=== PATIENT | female | born 1940 | race Caucasian/White ===

== ENCOUNTER → 2016-10-20 | Outpatient (CLI) | payer MEDICARE, BC ==
[~2016-10-20] MED LIST: ACETAMINOPHEN PO; ACYCLOVIR400 MG PO; ADVAIR 2501 DISK W/D PO; ADVAIR 500-501 EACH IH; ADVAIR 5001 DISK W/2 IH; ALBUTEROL MININEB NEB; ALBUTEROL0.63 MG/3 IH; ALBUTEROL17 GM INH; ALLEGRA-D 12 H1 EACH; ALLEGRA-D1 TAB.SR1 PO; ALPRAZOLAM PO; ALPRAZOLAM0.25 MG PO; AMBIEN PO; AMIODARONE HCL100 MG PO; APAP325 M1 PO; ARTHROTEC 501 TAB.EC PO; ASPIRIN PO; ASPIRIN81 M2 PO; ASPIRIN81 MG PO; ATORVASTATIN CA40 MG PO; BENTYL10 M1 PO; CALCIUM 500 +1 EAC2 PO; CLINDAMYCIN HC300 MG PO; COLACE PO; COLCRYS0.6 M2 PO; COMBIVENT U/D3 M1 INH; CORDARONE200 M1 PO; COUMADIN1 MG; COUMADIN1 MG PO; COUMADIN2.5 MG PO; DARVOCET-N 1001 TAB PO; DUONEB 2.5-0.5 M3 ML NEB; DURAGESIC TOP; DURAGESIC25 MCG EXT; ERYTHROMYCIN E400 M1 PO; EVISTA60 MG PO; FLAGYL PO; FLONASE 0.05% N16 G1; FLONASE16 GM; FLUOXETINE HCL20 M1 PO; HCTZ PO; HYDROCHLOROTHIA25 MG PO; HYDROCODON-ACE1 EAC4 PO; HYDROCODON-ACE1 EAC5 PO; INVANZ1 G/VIA1 IV; IPRAT-ALBUT 0.5-3 ML NEB; IPRATROPIUM0.2 MG/ML NEB; LANSOPRAZOLE30 M2 PO; LEVAQUIN PO; LIPITOR PO; LIPITOR40 MG PO; LISINOPRIL5 MG PO; LOPRESSOR PO; LORTAB 10-3251 EACH PO; LORTAB 7.5-3251 EACH PO; METOPROLOL PO; METOPROLOL SUCC25 MG PO; MINI NEBS; MIRALAX255 GM PO; MOBIC PO; MONTELUKAST SOD10 MG PO; NASONEX17 GM; NEXIUM PO; NORCO 7.5/325 T1 TAB PO; NORVASC PO; OXYCODONE-ACET1 EACH PO; OXYGEN; PANTOPRAZOLE SO40 MG PO; PHENERGAN25 MG PO; PHENOLATE PO; POTASSIUM CHLO10 ME1 PO; PREDNISONE PO; PREDNISONE10 MG PO; PREVACID PO; PRINIVIL10 MG PO; PROTONIX PO; RESTORIL15 MG PO; SARAFEM PO; SERTRALINE HCL25 M2 PO; SINGULAIR PO; SYNTHROID PO; TEMAZEPAM PO; TOPROL XL PO; TUSSIN MAX15 MG/5 M1 PO; TUSSIONEX PENN473 ML PO; TYLENOL325 M1 PO; VIBRAMYCIN100 M1 PO; WARFARIN SODIUM2 MG PO; XARELTO20 MG PO; ZITHROMAX PO; ZOLOFT PO
--- NOTE | ~2016-10-20 | CR282 ---
[facility] A Service of [facility] & [facility] RADIOLOGY TEXT RESULTS PATIENT: LUCIO DOLAN LOCATION: [facility] : 41 UNIT #: [id number] AGE: [address]: ZEINA PASCAL SEX: F ORDER DR: [id number] [facility] [address] [facility]. [place], [place] [address] [id number] O MR#: [id number] Acc #: [id number] NAME: LUCIO DOLAN. : 1940 SEX: F STUDY DATE/TIME: 10/20/2016 15:41 UNIT: [facility] ROOM: STUDY DESCRIPTION: CR Wrist Min 3 View Rt Attending Physician: Kathy Mcclendon Referring Physician: Kathy Mcclendon Primary Care Physician: Isabella Jose M.D. MEDICAL IMAGING REPORT This report is preliminary unless electronic signature is present EXAM Right wrist, 3 views. HISTORY Wrist pain and swelling after a fall 4 days ago. FINDINGS 3 views of the right wrist demonstrate advanced chronic degenerative changes, stable compared to 09/23/2015, with chronic deformity of the articular surface of the radius at its junction with the scaphoid, and chronic remodelling and sclerosis of the proximal pole of the scaphoid. Widened scapholunate interspace, indicating prior scapholunate ligament injury is also stable. Probable ossified loose body along the lateral margin of the wrist at the radiocarpal junction. Generalized demineralization. Degenerative cysts in the distal radius. Minimal chondrocalcinosis in the triangular fibrocartilage. No acute fracture. IMPRESSION 1. Degenerative changes in the wrist, most severe in the radiocarpal junction with chronic remodelling and deformity of the proximal scaphoid and the adjacent articular surface of the radius. 2. No acute finding. No fracture. No change compared to 09/23/2015. Dictated by... Alek Johnson M.D. THIS IS AN ELECTRONICALLY VERIFIED REPORT Alek Johnson M.D. at 10/21/2016 3:57 PM DFL/yosvany TD: 10/21/2016 09:39 [facility] A Service of [facility] & [facility] RADIOLOGY TEXT RESULTS PATIENT: LUCIO DOLAN LOCATION: [facility] #: [id number] : 41 UNIT #: [id number] AGE: [address]: ZEINA PASCAL SEX: F ORDER DR: JEOVANNY #: [id number] MEDICAL IMAGING REPORT COPY
== END | disposition home or self-care (01) ==
LOC: CRAD 15:26
DX: M25.431 Effusion, right wrist (principal); S63.501A Unspecified sprain of right wrist, initial encounter; M21.931 Unspecified acquired deformity of right forearm
CPT/HCPCS: 73110

== ENCOUNTER → 2016-12-03 | Day surgery (SDC) | payer MEDICARE, BC ==
--- NOTE | ~2016-12-03 | OR ---
Unit #: [id number] #: [id number] Patient: LUCIO DOLAN [id number] [address] [address] [id number] O MR#: [id number] NAME: LUCIO DOLAN ROOM: Date of Procedure: 12/03/2016 Admission Date: 12/03/2016 Surgeon: Rajan Torres M.D. : 1940 Attending Physician: Rajan Torres M.D. Primary Care Physician: Isabella Jose M.D. OPERATIVE REPORT PREOPERATIVE DIAGNOSES Back pain, radiculopathy and degenerative disk disease with myelopathy. POSTOPERATIVE DIAGNOSES Back pain, radiculopathy and degenerative disk disease with myelopathy. PROCEDURE PERFORMED Lumbar epidural steroid injection with intravenous sedation under fluoroscopic guidance for needle localization. INDICATIONS FOR PROCEDURE The patient is a 76-year-old female with return of back and right greater than left lower extremity pain due to multilevel nonsurgical degenerative disk disease, most significant at L4-5 and present from L2 through S1. Epidural steroids have generally given her anywhere from 2 to 6 months of improvement. Last injection did not work quite as well. Plan is to repeat injection at the mid level practitioner based on history, pathology, symptomatology and response to treatment. DESCRIPTION OF PROCEDURE The patient was placed in a seated position. Standard monitors were applied. Then, 2 mg of Versed were given for sedation and anxiolysis, which were adequate. Vital signs remained stable. Sterile prep and drape then of the lumbar area was performed. The skin then at the L4-L5 level was localized with 1% lidocaine. An 18-gauge UCANtead needle was then advanced via loss of resistance technique and fluoroscopic guidance in toward the epidural space. After confirming proper positioning with fluoroscopy and radiographic contrast, 80 mg of Depo-Medrol and 6 mL of 0.5% lidocaine were deposited. The patient tolerated the procedure otherwise well and was discharged to the recovery room in stable condition. Dictated by... Rajan Torres M.D. LHP/modl TD: 12/03/2016 09:57 JOB #: [id number] CC: Pain Center Unit #: [id number] #: [id number] Patient: LUCIO DOLAN OPERATIVE REPORT Page 1 of 1 X Rajan Torres MD X PROCEDURE OPERATIVE NOTE
== END | disposition home or self-care (01) ==
LOC: CCSC 07:53
DX: M51.06 Intervertebral disc disorders with myelopathy, lumbar region (principal); M54.16 Radiculopathy, lumbar region; I10 Essential (primary) hypertension; K21.9 Gastro-esophageal reflux disease without esophagitis; J44.9 Chronic obstructive pulmonary disease, unspecified
CPT/HCPCS: J1040; J2250

== ENCOUNTER → 2016-12-24 | Outpatient (CLI) | payer MEDICARE, BC ==
--- NOTE | ~2016-12-24 | CT57 ---
[facility] A Service of [facility] & [facility] RADIOLOGY TEXT RESULTS PATIENT: LUCIO DOLAN LOCATION: [facility] : 41 UNIT #: [id number] AGE: [address]: Frank Fay MD SEX: F ORDER DR: [id number] [facility] [address] [facility]. [place], [place] [address] [id number] O MR#: [id number] Acc #: [id number] NAME: LUCIO DOLAN : 1940 SEX: F STUDY DATE/TIME: 12/24/2016 13:59 UNIT: [facility] ROOM: STUDY DESCRIPTION: CT Chest Wo Cont Attending Physician: Frank Fay M.D. Referring Physician: Frank Fay M.D. Ordering Physician: Frank Fay M.D. Primary Care Physician: Isabella Jose M.D. MEDICAL IMAGING REPORT This report is preliminary unless electronic signature is present EXAM High resolution chest CT without contrast INDICATIONS Pulmonary fibrosis, abnormal PFTs. Wheezing for [address] exam was performed with one or more of the following radiation dose reduction techniques: automatic exposure control, adjustment of mA and/or kV according to patient size, and iterative reconstruction. CT of the chest was performed without contrast. Selected HRCT imaging was obtained in the supine and prone positioning. Comparison is made with 02/06/2015. FINDINGS There is new small amount of ground-glass opacity in the anterior right upper lobe on image 15 through 17. There is curvilinear scarring or atelectasis in the region of my right middle lobe. There is a tiny micronodule in the inferior right lower lobe on image 23. There is some minimal curvilinear fibrotic change in the posterior aspect of the right lower lobe. There is also some mild cylindrical bronchiectasis medially in the right lower lobe best seen on high-resolution axial image 15. There is no evidence of diffuse infiltrative lung disease or honeycombing. Calcified mediastinal lymph nodes. Coronary artery calcification. Minimal amount of pericardial fluid or thickening. Limited imaging of the upper abdomen demonstrates multiple cysts in the liver. Degenerative changes thoracic spine. IMPRESSION 1. There is some minimal ground-glass opacity in the right upper lobe as described. Appearance is nonspecific and may be infectious STS. [facility] A Service of [facility] RADIOLOGY TEXT RESULTS PATIENT: LUCIO DOLAN LOCATION: [facility] : 41 UNIT #: [id number] AGE: [address]: Frank Fay MD SEX: F ORDER DR: or inflammatory or possibly some minimal fibrosis. 2. There is minimal curvilinear fibrosis in the medial posterior aspect of the right lower lobe, and there is some mild bronchiectasis also in this region. 3. Tiny micronodule in the base of the right upper lobe. 4. No evidence for diffuse infiltrative lung disease or honeycombing Dictated by... Stone Gordon M.D. THIS IS AN ELECTRONICALLY VERIFIED REPORT Stone Gordon M.D. at 12/25/2016 10:08 AM SANTHOSH/leonardo TD: 12/24/2016 21:18 JOB #: [id number] MEDICAL IMAGING REPORT Page 1 of 1 COPY
== END | disposition home or self-care (01) ==
LOC: CCAT 13:25
DX: J84.10 Pulmonary fibrosis, unspecified (principal); R06.00 Dyspnea, unspecified; J47.9 Bronchiectasis, uncomplicated
CPT/HCPCS: 71250

== ENCOUNTER → 2017-01-28 | Day surgery (SDC) | payer MEDICARE, BC ==
--- NOTE | ~2017-01-28 | OR ---
Unit #: [id number] #: [id number] Patient: LUCIO DOLAN [id number] [address] [address] [id number] O MR#: [id number] NAME: LUCIO DOLAN ROOM: Date of Procedure: 01/28/2017 Admission Date: 01/28/2017 Surgeon: Rajan Torres M.D. : 1940 Attending Physician: Rajan Torres M.D. Primary Care Physician: Isabella Jose M.D. OPERATIVE REPORT JOB NOTE: CC: [facility] PREOPERATIVE DIAGNOSES Back pain, radiculopathy, degenerative lumbar disk disease, lumbar disk herniation. POSTOPERATIVE DIAGNOSES Back pain, radiculopathy, degenerative lumbar disk disease, lumbar disk herniation. PROCEDURE PERFORMED Lumbar epidural steroid injection with fluoroscopic guidance. INDICATIONS FOR PROCEDURE The patient is a 76-year-old female with return of back and bilateral lower extremity pain. She has known nonsurgical disk disease and lumbar disk herniation at the L4-L5 level, spinal stenosis at L2-L3 and L3-L4. She has done well with p.r.n. epidural steroid injections. Plan is to repeat an injection today. DESCRIPTION OF PROCEDURE The patient was placed in a seated position. Standard monitors were applied. Sterile prep and drape of the lumbar area was performed. The skin then at the L5 level was localized with 1% lidocaine. An 18-gauge Hustead needle was then advanced via loss of resistance technique and fluoroscopic guidance in toward the epidural space. After confirming proper positioning with fluoroscopy and radiographic contrast, 80 mg of Depo-Medrol and 4 mL of preservative-free normal saline were deposited. The patient tolerated the procedure well and was discharged to recovery room in stable condition. Dictated by... Danielito RiveraP/sobeida TD: 01/29/2017 00:02 JOB #: [id number] Unit #: [id number] #: [id number] Patient: LUCIO DOLAN OPERATIVE REPORT Page 1 of 1 X Rajan Torres MD X PROCEDURE OPERATIVE NOTE
== END | disposition home or self-care (01) ==
LOC: CCSC 08:35
DX: M51.16 Intervertebral disc disorders with radiculopathy, lumbar region (principal); M48.06 Spinal stenosis, lumbar region; K21.9 Gastro-esophageal reflux disease without esophagitis; I10 Essential (primary) hypertension; J44.9 Chronic obstructive pulmonary disease, unspecified; Z86.73 Personal history of transient ischemic attack (TIA), and cerebral infarction without residual deficits; Z88.0 Allergy status to penicillin; Z88.1 Allergy status to other antibiotic agents; Z88.2 Allergy status to sulfonamides; Z79.51 Long term (current) use of inhaled steroids; Z79.891 Long term (current) use of opiate analgesic; Z79.01 Long term (current) use of anticoagulants; Z99.81 Dependence on supplemental oxygen; Z79.899 Other long term (current) drug therapy
CPT/HCPCS: J1040; J2250

== ENCOUNTER 2017-02-10 10:25 | Observation (INO) | payer MEDICARE, BC ==
--- NOTE | ~2017-02-10 | EKG ---
PATIENT: LUCIO DOLAN UNIT #: [id number] Ventricular Rate: 70 BPM Atrial Rate: 70 BPM P-R Interval: 166 ms QRS Duration: 86 ms Q-T Interval: 482 ms QTC Calculation(Bezet): 520 ms P Tipton: 58 degrees Calculated R Tipton: 39 degrees Calculated T Tipton: 61 degrees Diagnosis Line: Sinus rhythm with Premature atrial complexes Diagnosis Line: T wave abnormality, consider anterior ischemia Diagnosis Line: Prolonged QT Diagnosis Line: Abnormal ECG Diagnosis Line: When compared with ECG of 30-JUL-2015 10:33, Diagnosis Line: Premature atrial complexes are now Present Diagnosis Line: QT has lengthened Diagnosis Line: Confirmed by SMITA NG MD ([id number]) on 02/11/2017 Diagnosis Line: 8:20:43 PM INTERPRETING MD: BERENICE MUIR
--- NOTE | ~2017-02-10 | HP ---
Unit #: [id number] #: [id number] Patient: LUCIO DOLAN [id number] [address] [address] [id number] I MR#: [id number] NAME: LUCIO DOLAN ROOM: 55 Age: 76 Sex: F Admission Date: 02/10/2017 : 1940 Attending Physician: Isabella Jose M.D. Primary Care Physician: Isabella Jose M.D. HISTORY AND PHYSICAL ADMISSION DIAGNOSES 1. Atypical chest pain. 2. Shortness of air and dyspnea. 3. History of atrial fibrillation. 4. Chronic obstructive pulmonary disease. 5. Chronic low back pain. 6. Hypertension. 7. Dyslipidemia. 8. Obstructive sleep apnea. 9. Anxiety disorder. HISTORY OF PRESENT ILLNESS Ms. Lucio Dolan is a 76-year-old female, patient of Dr. Jose, who was seen at Dr. Jose's office with the complaint of shortness of air and dyspnea. Patient also complains of substernal chest pain with radiation to the back. She states that her symptoms started about two to three days ago and gradually got worse. She describes the pain as sharp, eight out of 10 at the worst. Denies any nausea or vomiting and denies any fever. Complains of some chills and complains of some nonproductive cough. Denies any headache, dizziness, syncope, nausea, vomiting, diarrhea, or abdominal pain. So a 12-point review of systems on this patient basically is negative except as above. PAST MEDICAL HISTORY 1. Paroxysmal atrial fibrillation. 2. Chronic obstructive pulmonary disease. 3. Hypertension. 4. Dyslipidemia. 5. Obstructive sleep apnea. 6. Anxiety. 7. Euthyroid sick syndrome. PAST SURGICAL HISTORY 1. Epidural injections secondary to chronic low back pain. 2. Thyroidectomy. 3. Neck dissection. HOME MEDICATIONS I do not have in front of me. This will be clarified with the pharmacy, ALLERGIES Penicillin, sulfa, and Levaquin. SOCIAL HISTORY Unit #: [id number] #: [id number] Patient: LUCIO DOLAN No current history of tobacco, alcohol, or illicit drugs. FAMILY HISTORY Unremarkable. PHYSICAL EXAMINATION GENERAL APPEARANCE: Patient is a 76-year-old female in no acute distress. VITAL SIGNS: Blood pressure 173/70, heart rate 70, respirations 18, and temperature 98.6. HEENT: Head is atraumatic. Pupils equal, round, and reactive to light and accommodation. Extraocular muscles are intact. Oropharynx clear. NECK: Supple. No mass, no JVD, no bruits. CHEST: Diminished bilaterally, however, no wheezing and no rhonchi. CARDIOVASCULAR: S1 and S2. No murmurs. ABDOMEN: Soft, nontender, and nondistended. LOWER EXTREMITIES: Without any cyanosis, clubbing, or edema. NEUROLOGIC: Grossly intact with no focal deficits. DIAGNOSTIC STUDIES So far none. Patient is a direct admit. ASSESSMENT AND PLAN 1. Atypical chest pain. Will get a chest x-ray PA and lateral. Also, will get cardiac enzymes x2 at six hours apart and 12-lead EKG. Also, consult patient's hitch technician, Dr. Palacios. 2. Shortness of air and dyspnea. Again, follow up on chest x-ray. I do not think patient is in acute chronic obstructive pulmonary disease exacerbation, so we will discontinue Solu-Medrol and treat with DuoNeb p.r.n. Continue CT of the chest. 3. History of paroxysmal atrial fibrillation. We will continue home medications. Patient is on chronic anticoagulation. Check INR. 4. Chronic low back pain, status post epidural injections most recently per Dr. Torres. 5. Hypertension. Resume home medications. 6. Dyslipidemia. Continue home medications. 7. Obstructive sleep apnea. Patient's primary rn clinical appeals is Dr. Fay. 8. History of anxiety. Continue home medications. 9. Gastrointestinal and deep venous thrombosis prophylaxis. Patient is on chronic anticoagulation with Coumadin. Follow up on the INR. Will consider Pepcid or proton pump inhibitor. 1. Dictated by Rom Givens M.D. OC/fili TD: 02/10/2017 18:25 JOB #: [id number] Unit #: [id number] #: [id number] Patient: LUCIO DOLAN HISTORY AND PHYSICAL Page 1 of 1 X Rom Givens MD X HISTORY AND PHYSICAL
--- NOTE | ~2017-02-10 | ST ---
Unit #: [id number] #: [id number] Patient: LUCIO DOLAN [id number] [address] [address] [id number] I MR#: [id number] NAME: LUCIO DOLAN. : 1940 SEX: F STUDY DATE/TIME: UNIT: B ROOM: 552 STUDY DESCRIPTION: Stress Test Attending Physician: Isabella Jose M.D. Primary Care Physician: Isabella Jose M.D. CARDIOLOGY REPORT EXAM Walking Lexiscan Cardiolite Stress Test DESCRIPTION Baseline EKG - normal sinus rhythm with ventricular rate 72 beats/minute, slow R wave progression, prolonged Q wave. Lexiscan is a four minute test with Lexiscan being injected within the first minute followed by Cardiolite. EKG during the test was equivocal to baseline. Some nonspecific ST-T wave abnormalities in inferior lateral leads. The patient had no complaints of chest pain, palpitations or dizziness. Had increased shortness of breath and fatigueness that resolved in recovery phase. Maximum heart rate response was 122 beats/minute with a maximum blood pressure response of 180/88 mmHg. It was noted that the patient's blood pressure decreased down to 160/80 mmHg at the end of recovery phase. Cardiolite was injected after Lexiscan within the first minute of the test. Radionuclide test pending. Please correlate with nuclear images. Dictated by... Geri Goel A.P.R.N. for Danielito Matthew/davey TD: 02/11/2017 11:17 JOB #: [id number] Unit #: [id number] #: [id number] Patient: LUCIO DOLAN CARDIOLOGY REPORT Page 1 of 1 X Geri Goel APRN CARDIOLOGY REPORT
--- NOTE | ~2017-02-10 | CO ---
Unit #: [id number] #: [id number] Patient: LUCIO DOLAN [id number] [address] [place], [place] [address] [id number] I MR#: [id number] NAME: LUCIO DOLAN ROOM: 552 Age: 76 Sex: F Admission Date: 02/10/2017 : 1940 Attending Physician: Isabella Jose M.D. Primary Care Physician: Isabella Jose M.D. CONSULTATION REPORT REASON FOR CONSULTATION Chest pain. HISTORY OF PRESENT ILLNESS This is a 76-year-old white female, who is known to Dr. Palacios, who has a history of hypertension, hyperlipidemia, paroxysmal supraventricular tachycardia, and paroxysmal atrial fibrillation where she is on anticoagulation with Coumadin. The patient went to her primary care physician's office because of chest pain. She describes sharp midsternal chest pain that radiates to midscapular, associated with shortness of breath and palpitations that started this morning while she was getting dressed. The chest pain occurred intermittently. She has been having shortness of breath that occurs with exertion when walking through the house upstairs for the past 3 days. Has occasional nonproductive cough, but no fever or chills. She denies leg edema. She also noticed a "knot" in right upper chest 2 weeks ago. She had a CAT scan of her chest on 12/24/2016, which showed a tiny micro nodule in the right upper lung base. There was no mention of cutaneous nodule. The patient went to her primary care physician's office, where she was sent for direct admission. Her initial troponin is negative. Her INR was 1.8. Her EKG showed T-wave inversion in the anterior leads of V1 through V4 that was not cited on previous EKGs. She is currently chest pain free. PAST MEDICAL HISTORY 1. 2D echocardiogram on 06/26/2008 shows an ejection fraction of 60% with mild mitral regurgitation and mild tricuspid regurgitation. 2. Paroxysmal atrial fibrillation, on anticoagulation with Coumadin. 3. Hypertension. 4. Hyperlipidemia. 5. Paroxysmal supraventricular tachycardia. 6. Obstructive sleep apnea. 7. COPD. 8. Anxiety. 9. Chronic back pain secondary to degenerative disk disease. 10. Former smoker. PAST SURGICAL HISTORY 1. Thyroidectomy for thyroid cancer. 2. I and D of the abscess. 3. Cervical epidural injections. 4. Right arm ganglion cyst removal. 5. Breast nodule removed. 6. Hysterectomy. 7. Cholecystectomy. Unit #: [id number] #: [id number] Patient: LUCIO DOLAN 8. Appendectomy. 9. Abdominal hernia surgery. SOCIAL HISTORY The patient is and lives at home alone. She states she is reasonably active. Quit smoking more than 20 years ago, but previously smoked 1-1/2 packs of cigarettes a day. No alcohol use. FAMILY HISTORY Mother had heart disease, but in her 90s. ALLERGIES Codeine, penicillin, and sulfa. MEDICATIONS From my office; amiodarone 100 mg daily, aspirin 81 mg daily, hydrochlorothiazide 25 mg daily, Lipitor 40 mg daily, temazepam 15 mg daily, and warfarin 1 mg daily. REVIEW OF SYSTEMS CONSTITUTIONAL: Negative for fever or chills. Has no weight gain or weight loss. HEENT: No headache, hearing or vision changes, or difficulty with swallowing. No dizziness. CARDIOVASCULAR: Has chest pain and palpitations as described in the HPI. Denies paroxysmal nocturnal dyspnea or orthopnea. No syncope or near syncope. RESPIRATORY: Positive for dyspnea on exertion. Reports occasional cough that is nonproductive. No hemoptysis. GASTROINTESTINAL: No abdominal pain, nausea, or vomiting. No constipation or melena. EXTREMITIES: Have occasional lower extremity edema. PHYSICAL EXAMINATION VITAL SIGNS: Blood pressure 173/70, heart rate 70, temperature 97.6, BMI 27. GENERAL: This is a very pleasant, well-developed, mildly obese, 76-year-old white female who is in no acute respiratory distress. NEUROLOGIC: She is awake, alert, and oriented. There are no focal weaknesses. NECK: Trachea is midline. No thyromegaly or lymphadenopathy. No jugular venous distention. HEART: S1 and S2. Heart sounds are normal. No murmurs, rubs, or clicks. Regular rate and rhythm. LUNGS: Diminished breath sounds without rales, rhonchi, or wheezes. ABDOMEN: Soft and nontender with bowel sounds present. EXTREMITIES: Without leg edema. SKIN: Warm and dry. DIAGNOSTIC STUDIES LABORATORY RESULTS: Hemoglobin 12.2, hematocrit 37.7, platelet count is 235, and white count 9.0. Sodium 139, potassium 3.6, BUN 16, creatinine 0.9, and glucose 94. Troponin less than 0.03. BNP 127. INR 1.8. IMAGING STUDIES: Chest x-ray is pending. CARDIOVASCULAR STUDIES: EKG shows normal sinus rhythm, rate of 70 beats per minute. There is T-wave inversion in V1 through V4, cannot rule out Unit #: [id number] #: [id number] Patient: LUCIO DOLAN ischemia. QTc prolongation 520 msec. IMPRESSION 1. Chest pain, rule out myocardial infarction. 2. Exertional dyspnea. 3. Chronic obstructive pulmonary disease exacerbation. 4. Paroxysmal atrial fibrillation, in normal sinus rhythm, on anticoagulation with Coumadin. 5. QTc prolongation 520 msec. 6. Right chest mass, questionable etiology. 7. Hypertension. 8. Hyperlipidemia. 9. Preserved left ventricular systolic function with an ejection fraction of 60%. PLAN 1. Cardiology was consulted for evaluation of chest pain. The patient's EKG is abnormal with anterior ischemic changes. Troponin is negative thus far. We will repeat EKG and troponin to rule out NV. She may require cardiac catheterization to evaluate her coronary anatomy. 2. INR is slightly subtherapeutic. We will continue on her current dose of Coumadin. 3. Continue low-dose amiodarone, aspirin, and statin. 4. Thyroid function will be checked. 5. Further recommendations to follow. Thank you for allowing us to assist in this patient's care. Dictated by... Kunal Thorpe A.P.R.N. for Danielito Matthew/sobeida TD: 02/13/2017 06:30 JOB #: [id number] CONSULTATION REPORT Page 1 of 1 X Kunal Thorpe APRN X CONSULTATION REPORT
--- NOTE | ~2017-02-10 | EKG ---
PATIENT: LUCIO DOLAN UNIT #: [id number] Ventricular Rate: 68 BPM Atrial Rate: 68 BPM P-R Interval: 168 ms QRS Duration: 82 ms Q-T Interval: 500 ms QTC Calculation(Bezet): 531 ms P Bruno: 61 degrees Calculated R Bruno: 13 degrees Calculated T Bruno: 56 degrees Diagnosis Line: Normal sinus rhythm Diagnosis Line: Nonspecific T wave abnormality Diagnosis Line: Prolonged QT Diagnosis Line: Abnormal ECG Diagnosis Line: When compared with ECG of 10-FEB-2017 12:45, Diagnosis Line: (unconfirmed) Diagnosis Line: Premature atrial complexes are no longer Present Diagnosis Line: Nonspecific T wave abnormality has replaced Diagnosis Line: inverted T waves in Anterior leads Diagnosis Line: Confirmed by SMITA NG MD ([id number]) on 02/11/2017 Diagnosis Line: 8:33:55 PM INTERPRETING MD: BERENICE MUIR
--- NOTE | ~2017-02-10 | DS ---
Unit #: [id number] #: [id number] Patient: LUCIO DOLAN [id number] [address] [address] [id number] I MR#: [id number] NAME: LUCIO DOLAN ROOM: 552 Age: 76 Sex: F Admission Date: 02/10/2017 : 1940 Discharge Date: 02/12/2017 Attending Physician: Isabella Jose M.D. Primary Care Physician: Isabella Jose M.D. DISCHARGE SUMMARY DISCHARGE DIAGNOSES 1. Chest pain. Status post Cardiology evaluation, status post unremarkable stress test, stable to be discharged per Cardiology. 2. Atrial fibrillation, continue rate control with beta rose and continue current anticoagulation with the Coumadin. Discharge date INR 1.4. Again, stable from Cardiology standpoint to be discharged. Follow up with the INR as an outpatient. 3. Chronic obstructive pulmonary disease at the baseline. Continue bronchodilators. 4. Chronic low back pain. Continue Hyannis. 5. Hypertension, stable. 6. Dyslipidemia. Continue home meds. 7. Anxiety. Continue hoe meds. 8. Hypocalcemia; had the calcium gluconate yesterday, currently stable. Continue calcium supplements. 9. Obstructive sleep apnea. Outpatient followup with the Pulmonary. 10. Chronic respiratory failure secondary to chronic obstructive pulmonary disease. Outpatient pulmonary rehab recommended. DISCHARGE MEDICATIONS 1. Proventil two puff inhaler t.i.d. 2. Advair 500/50 inhaler b.i.d. 3. DuoNeb q.i.d. p.r.n. for shortness of air. 4. Amiodarone 100 mg daily. 5. Warfarin 1 mg Wednesday, Wednesday, Wednesday, , Wednesday and Wednesday and 2 mg on Wednesday. 6. Temazepam 30 mg q.h.s. 7. Lopressor 12.5 mg p.o. b.i.d. 8. Home oxygen. 9. Hydrochlorothiazide 25 mg daily. 10. Lipitor 40 mg q.h.s. 11. Zestril 10 mg b.i.d. 12. Colchicine 0.6 mg p.o. daily p.r.n. for gout flare up. 13. Singulair 10 mg daily. 14. Aspirin 81 mg daily. 15. Hyannis 10/325 one tablet q.4 h. p.r.n. for pain. 16. Protonix 40 mg daily. 17. Calcium with vitamin D 1200 mg p.o. b.i.d. 18. Marcela one tablet daily. 19. Synthroid 112mcg daily. DISPOSITION Going home. Unit #: [id number] #: [id number] Patient: LUCIO DOLAN FOLLOWUP 1. Follow up with the primary care physician in two to three day. 2. Outpatient followup with the cardiology. 3. Outpatient pulmonary rehab as recommended as above. CONSULTS ON THIS HOSPITAL STAY Dr. Palacios, cardiology. LABS AND DIAGNOSTICS AND PROCEDURES ON THIS HOSPITAL STAY 1. Stress test per Cardiology with Cardiolite. No chest pain. No signs of ischemia. Stable to be discharged. 2. Chest x-marilee admission, no acute chest findings. HISTORY OF PRESENT HOSPITAL STAY AND ACTIVE PROBLEMS ON THIS HOSPITALIZATION Chest pain. Status post cardiology evaluation, unremarkable workup including stress Cardiolite. Stable from cardiology standpoint. Afib: Continue Lopressor. Continue anticoagulation with the Coumadin. Will monitor INR. COPD and chronic respiratory failure. Continue home O2. Continue bronchodilators. Outpatient pulmonary rehab. Outpatient followup with Pulmonary. Chronic low back pain. Continue Hyannis. Hypertension, stable. Dyslipidemia. Continue statin. Anxiety. Continue home medications. Hypocalcemia. Continue home supplements. Dictated by... Rom Givens M.D. OC/cf TD: 02/12/2017 22:49 JOB #: [id number] Unit #: [id number] #: [id number] Patient: LUCIO DOLAN DISCHARGE SUMMARY Page 1 of 1 X Rom Givens MD X DISCHARGE SUMMARY
--- NOTE | ~2017-02-10 | TH ---
Unit #: [id number] #: [id number] Patient: LUCIO DOLAN [id number] [address] [address] [id number] I MR#: [id number] NAME: LUCIO DOLAN. : 1940 SEX: F STUDY DATE/TIME: 02/11/2017 UNIT: [id number] ROOM: 552 STUDY DESCRIPTION: NUCLEAR STUDY Attending Physician: Isabella Jose M.D. Primary Care Physician: Isabella Jose M.D. CARDIOLOGY REPORT EXAM Nuclear Study DESCRIPTION This 76-year-old patient received 0.4 mg of Lexiscan intravenously, followed by 35.3 mCi of technetium-99 Cardiolite and images were obtained according to standard SPECT protocol. For rest images 12 mCi of Cardiolite was injected. Images were reviewed in both phases. FINDINGS Overall study quality is excellent. LV cavity size is normal in both images. There is no lung activity. RV is normal. Rotating raw data showed no significant artifact, soft tissue attenuation, or GI uptake. Review of SPECT images showed normal homogeneous radiotracer concentration throughout the myocardium in both the stress and rest images. Gated images showed a normal LV wall thickening and wall motion with an LV ejection fraction 81%. IMPRESSION 1. Myocardial perfusion imaging is normal. 2. No evidence of ischemia or infarct. 3. Normal LV dimensions. 4. Normal systolic LV function with an estimated LV ejection fraction 81%. Dictated by... Danielito Martinez/shannon TD: 02/11/2017 15:57 JOB #: [id number] Unit #: [id number] #: [id number] Patient: LUCIO DOLAN CARDIOLOGY REPORT Page 1 of 1 X Sherman Skinner MD CARDIOLOGY REPORT
--- NOTE | ~2017-02-10 | CR63 ---
[facility] A Service of [facility] RADIOLOGY TEXT RESULTS PATIENT: LUCIO DOLAN LOCATION: [place] [address] : [birth year] UNIT #: [id number] AGE: [address]: Isabella Jose MD SEX: F ORDER DR: [id number] [facility] [address]. [place], [place] [address] [id number] I MR#: [id number] Acc #: [id number] NAME: LUCIO DOLAN : 1940 SEX: F STUDY DATE/TIME: 02/10/2017 14:22 UNIT: [facility] ROOM: [facility] STUDY DESCRIPTION: CR Chest 2 View Attending Physician: Isabella Jose M.D. Ordering Physician: Rom Givens M.D. Primary Care Physician: Isabella Jose M.D. MEDICAL IMAGING REPORT This report is preliminary unless electronic signature is present EXAM PA and lateral chest DATE 02/10/2017 HISTORY Shortness of breath and chest pain today. COMPARISON AP portable chest 03/04/2016. FINDINGS Stable asymmetric elevation of the right hemidiaphragm. Clear lungs. Normal heart size. Upper lumbar curvature toward the left. Mild degenerative loss of disc height and endplate spurring in the mid thoracic spine with mild mid thoracic dextroscoliosis. IMPRESSION 1. No acute chest findings. 2. Mild thoracolumbar scoliosis. Dictated by... Laura Ribeiro M.D. THIS IS AN ELECTRONICALLY VERIFIED REPORT Laura Ribeiro M.D. at 02/11/2017 10:02 AM LLH/jen TD: 02/10/2017 16:12 JOB #: [id number] [facility] A Service [facility] RADIOLOGY TEXT RESULTS PATIENT: LUCIO DOLAN LOCATION: [place] [address] : [birth year] UNIT #: [id number] AGE: [address]: Isabella Jose MD SEX: F ORDER DR: MEDICAL IMAGING REPORT Page 1 of 1 COPY
[~2017-02-10 10:25] MED LIST changes: -ALLEGRA-D 12 H1 EACH; -ASPIRIN81 MG PO; -COLCRYS0.6 M2 PO; -LORTAB 10-3251 EACH PO; -PRINIVIL10 MG PO
[2017-02-10 14:25] LABS: HEMATOCRIT 37.7 % (35.0-45.0); HEMOGLOBIN 12.2 gm/dL (12.0-16.0); MEAN CELL VOLUME 93.1 FL (83-96); MEAN CORPUSCULAR HEMOGLOBIN 30.2 PG (28-34); MEAN CORPUSCULAR HGB CONC 32.5 g/dL (30-36); MEAN PLATELET VOLUME 8.6 FL (6.5-11.5); RED BLOOD COUNT 4.05 X10e (3.90-5.30)
[2017-02-10 14:37] LABS: INR 1.8; PROTHROMBIN TIME (PATIENT) 19.2 SECONDS (10.0-11.7)
[2017-02-10 14:56] LABS: ALBUMIN SERUM 3.8 g/dL (3.5-5.0); BILIRUBIN,TOTAL 0.9 mg/dL (0.2-2.0); BUN/CREATININE RATIO 17.77; CALCIUM SERUM 6.9 mg/dL (8.4-10.2); CREATININE SERUM 0.9 mg/dL (0.6-1.4); GLOM FILT RATE Estimated 62.6 mL/min (>60); POTASSIUM 3.6 mmol/L (3.5-5.1); PROTEIN TOTAL SERUM 6.1 g/dL (6.0-8.3)
[2017-02-10 15:13] LABS: %MB 2.4 % (0.0-4.0); MB 2.6 ng/ml
[2017-02-10 16:38] LABS: THYROID STIMULATING HORMONE 0.81 uIU/ml (0.34-5.60)
[2017-02-10 16:45] LABS: FREE THYROXIN (T4) 1.46 ng/dL (0.58-1.64)
[2017-02-10] MEDS ORDERED: PRINIVIL10 MG PO (19:40)
[2017-02-10] MEDS ORDERED: ALLEGRA-D 12 H1 EACH (19:41)
[2017-02-10] MEDS ORDERED: COLCRYS0.6 M2 PO (19:42)
[2017-02-10 20:34] LABS: URINE APPEARANCE CLEAR; URINE BILIRUBIN NEG (NEG); URINE BLOOD NEG (NEG); URINE COLOR YELLOW; URINE GLUCOSE NEG (NEG); URINE KETONE NEG (NEG); URINE LEUKOCYTE ESTERASE NEG (NEG); URINE NITRATE NEG (NEG); URINE PROTEIN NEG (NEG); URINE SPECIFIC GRAVITY 1.008 (1.003-1.035); URINE UROBILINOGEN 0.2 MG/DL (NEG)
[2017-02-10 20:38] LABS: CULTURE INDICATED? NO
[2017-02-10 20:43] LABS: %MB 2.4 % (0.0-4.0); MB 2.2 ng/ml
[2017-02-11 06:06] LABS: INR 1.5; PROTHROMBIN TIME (PATIENT) 16.2 SECONDS (10.0-11.7)
[2017-02-11 06:39] LABS: BUN/CREATININE RATIO 18.75; CALCIUM SERUM 6.5 mg/dL (8.4-10.2); CREATININE SERUM 0.8 mg/dL (0.6-1.4); GLOM FILT RATE Estimated 72.2 mL/min (>60); MAGNESIUM 1.8 mg/dL (1.6-3.0); POTASSIUM 3.6 mmol/L (3.5-5.1)
[2017-02-12 06:33] LABS: HEMATOCRIT 34.5 % (35.0-45.0); HEMOGLOBIN 11.3 gm/dL (12.0-16.0); MEAN CELL VOLUME 92.6 FL (83-96); MEAN CORPUSCULAR HEMOGLOBIN 30.3 PG (28-34); MEAN CORPUSCULAR HGB CONC 32.7 g/dL (30-36); MEAN PLATELET VOLUME 8.7 FL (6.5-11.5); RED BLOOD COUNT 3.72 X10e (3.90-5.30); RED CELL DISTRIBUTION WIDTH 14.3 % (11.0-15.5); WHITE BLOOD COUNT 8.2 X10e3 (4.0-10.5)
[2017-02-12 06:45] LABS: INR 1.4; PROTHROMBIN TIME (PATIENT) 15.5 SECONDS (10.0-11.7)
[2017-02-12 07:06] LABS: BUN/CREATININE RATIO 18.57; CALCIUM SERUM 7.5 mg/dL (8.4-10.2); CREATININE SERUM 0.7 mg/dL (0.6-1.4); GLOM FILT RATE Estimated 84.8 mL/min (>60); MAGNESIUM 1.9 mg/dL (1.6-3.0); POTASSIUM 3.9 mmol/L (3.5-5.1)
[2017-02-12] MEDS ORDERED: LORTAB 10-3251 EACH PO (19:06)
[2017-02-12] MEDS ORDERED: METOPROLOL SUCC25 MG PO (19:07)
[2017-02-12] MEDS ORDERED: ASPIRIN81 MG PO (19:40)
== END 2017-02-12 20:00 | disposition home or self-care (01) ==
LOC: C5B 10:25 → PREINTOOBSV 10:56 → C5B 11:47 → UNDOADMOB 11:47 → C5B 02-12 20:00
PROVIDERS: Hospitalist; Internal Medicine Cardiovascular Disease; Nurse Practitioner; Physician Assistant Medical
DX: R07.89 Other chest pain (principal); I48.0 Paroxysmal atrial fibrillation; Z79.01 Long term (current) use of anticoagulants; J44.9 Chronic obstructive pulmonary disease, unspecified; M54.5 Low back pain; I10 Essential (primary) hypertension; E78.5 Hyperlipidemia, unspecified; F41.9 Anxiety disorder, unspecified; M41.9 Scoliosis, unspecified; E83.51 Hypocalcemia; G47.33 Obstructive sleep apnea (adult) (pediatric); J96.10 Chronic respiratory failure, unspecified whether with hypoxia or hypercapnia; Z99.81 Dependence on supplemental oxygen; Z79.899 Other long term (current) drug therapy; Z87.891 Personal history of nicotine dependence; Z82.49 Family history of ischemic heart disease and other diseases of the circulatory system; Z88.0 Allergy status to penicillin; Z88.2 Allergy status to sulfonamides; Z88.1 Allergy status to other antibiotic agents
CPT/HCPCS: 71020; 78452; 80048; 80053; 81003; 82308; 82330; 82550; 82553; 82947; 83735; 83880; 84439; 84443; 84484; 85027; 85610; 93005; 93017; 94640; 94664; 94760; 96374; 96375; 96376; 97162; A9500; G0378; G8978-GP; G8979-GP; G8980-GP; J0610; J2405; J2785; J3475

== ENCOUNTER → 2017-03-27 | Outpatient (CLI) | payer MEDICARE, BC ==
[~2017-03-27] MED LIST changes: +ALLEGRA-D 12 H1 EACH; +ASPIRIN81 MG PO; +COLCRYS0.6 M2 PO; +LORTAB 10-3251 EACH PO; +PRINIVIL10 MG PO
--- NOTE | ~2017-03-27 | CR63 ---
[facility] A Service of [facility] RADIOLOGY TEXT RESULTS PATIENT: LUCIO DOLAN LOCATION: [facility] : [birth year] UNIT #: [id number] AGE: [address]: Mary Mcgrath APRN SEX: F ORDER DR: [id number] [facility] [address] [facility]. [place], [place] [address] [id number] O MR#: [id number] Acc #: [id number] NAME: LUCIO DOLAN : 1940 SEX: F STUDY DATE/TIME: 03/27/2017 11:24 UNIT: [facility] ROOM: STUDY DESCRIPTION: CR Chest 2 View Attending Physician: Mary Mcgrath Aprn Referring Physician: Mary Mcgrath Aprn Ordering Physician: Mary Mcgrath Aprn Primary Care Physician: Isabella Jose M.D. MEDICAL IMAGING REPORT This report is preliminary unless electronic signature is present EXAM Two-view chest INDICATION Cough. Weakness. COPD. TECHNIQUE AND COMPARISON 2 views of the chest compared to 02/10/2017. FINDINGS The heart and mediastinal contours are normal. Lungs are clear. There is background COPD. No pleural effusion. IMPRESSION No acute cardiopulmonary findings or significant interval change. Dictated by... Pancho Hussein M.D. THIS IS AN ELECTRONICALLY VERIFIED REPORT Pancho Hussein M.D. at 03/28/2017 5:16 PM RPC/jen TD: 03/28/2017 16:14 JOB #: [id number] MEDICAL IMAGING REPORT Page 1 of 1 COPY
== END | disposition home or self-care (01) ==
LOC: CRAD 11:09
DX: J44.9 Chronic obstructive pulmonary disease, unspecified (principal)
CPT/HCPCS: 71020

== ENCOUNTER → 2017-04-27 | Day surgery (SDC) | payer MEDICARE, BC ==
--- NOTE | ~2017-04-27 | OR ---
Unit #: [id number] #: [id number] Patient: LUCIO DOLAN [id number] [address] [place], [place] [address] [id number] O MR#: [id number] NAME: LUCIO DOLAN ROOM: Date of Procedure: 04/27/2017 Admission Date: 04/27/2017 Surgeon: Rajan Torres M.D. : 1940 Attending Physician: Rajan Torres M.D. Primary Care Physician: Isabella Jose M.D. OPERATIVE REPORT PREOPERATIVE DIAGNOSES Herniated nucleus pulposus, spinal stenosis, back pain, radiculopathy. POSTOPERATIVE DIAGNOSES Herniated nucleus pulposus, spinal stenosis, back pain, radiculopathy. PROCEDURE PERFORMED Lumbar epidural steroid injection with intravenous sedation and fluoroscopic guidance for needle localization. INDICATIONS FOR PROCEDURE The patient is a 76-year-old female with return of back and bilateral lower extremity pain right side worse than the left due to known L4-L5 disk herniation, spinal stenosis from L2 through S1. The patient is not a surgical candidate. She treated medically with p.r.n. epidural steroid injections, last was completed 3 months ago. She did extremely well. She had return of symptoms in a typical distribution. Based on history, pathology, symptomatology, and treatment options, plan is to repeat an epidural steroid injection today. DESCRIPTION OF PROCEDURE The patient was placed in a seated position. Standard monitors were applied. 2 mg of Versed were given for sedation and anxiolysis, which were adequate. Vital signs remained stable. Sterile prep and drape then of the lumbar area was performed. The skin then at the L5 level was localized with 1% lidocaine. An 18-gauge [employer] Groupt[employer] needle was then advanced via loss of resistance technique and fluoroscopic guidance in toward the epidural space. The patient did not complain of pain or paresthesia during needle advancement. After confirming proper positioning with fluoroscopy and radiographic contrast, 80 mg of Depo-Medrol and 4 mL of 0.125% bupivacaine were deposited. The patient tolerated the procedure otherwise well and was discharged to the recovery room in stable condition. Dictated by... Danielito Rivera/sobeida TD: 04/27/2017 12:40 JOB #: [id number] Unit #: [id number] #: [id number] Patient: MAGDALENO,MARION OPERATIVE REPORT Page 1 of 1 X Rajan Torres MD X PROCEDURE OPERATIVE NOTE
== END | disposition home or self-care (01) ==
LOC: CCSC 07:12
DX: M51.16 Intervertebral disc disorders with radiculopathy, lumbar region (principal); M48.06 Spinal stenosis, lumbar region; M48.07 Spinal stenosis, lumbosacral region; K21.9 Gastro-esophageal reflux disease without esophagitis; J44.9 Chronic obstructive pulmonary disease, unspecified; I10 Essential (primary) hypertension; Z88.0 Allergy status to penicillin; Z88.2 Allergy status to sulfonamides; Z88.1 Allergy status to other antibiotic agents; Z79.51 Long term (current) use of inhaled steroids; Z79.01 Long term (current) use of anticoagulants; Z79.899 Other long term (current) drug therapy
CPT/HCPCS: J1040; J2250